=== PATIENT | female | born 1970 | race American Indian/Alaskan Native ===

== ENCOUNTER 2017-01-28 13:54 | Emergency (ER) | payer OTHER ==
[2017-01-28 17:58] LABS: Bacteria,Urine 2+ /HPF (Negative); Bilirubin,Urine NEG (Negative); Blood,Urine NEG (Negative); Ketones,Urine NEG (Negative); Leukocyte Esterase,Urine NEG (Negative); Nitrite,Urine POS (Negative); Protein,Urine <15 mg/dL mg/dL (Negative); Urobilinogen,Urine < 2.0 mg/dL (<2.0)
[2017-01-28] MEDS ORDERED: MACROBID PO ONE (18:10)
--- NOTE | 2017-01-28 18:18 | Emergency Department Report ---
Entered by GAURAV VALDEZ, acting as scribe for DEIDRE MARTINEZ NP. ED Female HPI - General Chief complaint: Urogenital-Female Stated complaint: UTI Time Seen by Provider: 01/28/17 17:59 Source: patient Mode of arrival: Ambulatory Limitations: No Limitations - History of Present Illness Initial comments: Pt is a 47 y.o. female with hx of frequent UTIs, who presents to [facility] for evaluation of two day hx of persistent urinary frequency, dysuria, and urgency with associated lower back pain and subjective fever. She describes her lower back pain as a constant, 3/10, aching that is aggravated with ADLs and alleviated with inactivity and Azo taken [employer]. Patient states that her current sx are similar to those experienced in the past with UTIs. She denies N/V or upper back pain. Pt notes that her most recent UTI was last year and states that Bactrim typically clears up her UTI sx. MD Complaint: dysuria, other (frequency, urgency, low back pain) Onset/Timin -: days(s) Location: suprapubic Radiation: other (low back ) Severity: mild, moderate Severity scale (0 -10): 3 Quality: aching Consistency: constant Improves with: other (inactivity) Worsens with: other (ADLs) Are you Now?: No Associated Symptoms: fever/chills (subjective fever), dysuria, other (positive for urgency and frequency). denies: vaginal discharge, vaginal bleeding, abdominal pain, nausea/vomiting, hematuria - Related Data Allergies Allergy/AdvReac Type Severity Reaction Status Date / Time Penicillins Allergy Nausea Verified 01/28/17 14:09 ED Review of Systems Comment: All other systems reviewed and negative Constitutional: fever (subjective) Respiratory: no symptoms reported Endocrine: no symptoms reported Gastrointestinal: denies: nausea, vomiting Genitourinary: as per HPI, urgency, dysuria, frequency. denies: hematuria Musculoskeletal: as per HPI, back pain (low) ED Past Medical Hx - Past Medical History Previous Medical History?: No - Surgical History Past Surgical History?: Yes Hx Cholecystectomy: Yes Hx Breast Surgery: Yes (Reduction) Additional Surgical History: Bowel obstruction, Exp. lap surgery - Social History Smoking Status: Never Smoker Substance Use Type: Alcohol, Non Opiate Pain, Other ED Physical Exam - General Limitations: No Limitations General appearance: alert, in no apparent distress - Head Head exam: Present: atraumatic, normocephalic, normal inspection - Eye Eye exam: Present: normal appearance. Absent: conjunctival injection - ENT ENT exam: Present: normal exam, mucous membranes moist, normal external ear exam - Neck Neck exam: Present: normal inspection, full ROM - Respiratory Respiratory exam: Present: normal lung sounds bilaterally. Absent: respiratory distress, chest wall tenderness - Cardiovascular Cardiovascular Exam: Present: regular rate, normal rhythm, normal heart sounds. Absent: systolic murmur, diastolic murmur, rubs, gallop - GI/Abdominal GI/Abdominal exam: Present: soft, normal bowel sounds, other (pt reports suprapubic discomfort). Absent: tenderness - Expanded GI/Abdominal Exam Expanded GI/Abdominal exam: Absent: Adams's sign, tenderness at Mcburney's Point - Extremities Exam Extremities exam: Present: normal inspection, full ROM - Back Exam Back exam: Present: normal inspection, full ROM, other (No CVA TTP, but pt reports pain across her lower back). Absent: tenderness, CVA tenderness (R), CVA tenderness (L), muscle spasm, paraspinal tenderness, vertebral tenderness, rash noted - Neurological Exam Neurological exam: Present: alert, oriented X3 - Psychiatric Psychiatric exam: Present: normal affect, normal mood - Skin Skin exam: Present: warm, dry, intact, normal color. Absent: rash ED Course Vital Signs 01/28/17 14:09 Temperature 97.8 F Pulse Rate 89 Respiratory 20 Rate Blood Pressure 148/93 O2 Sat by Pulse 100 Oximetry - Reevaluation(s) Reevaluation #1: 01/28/17 18:16 PT aware of lab results and plan of care. PT has no questions at this time. Strict return precautions reviewed with pt. - Pulse Oximetry Interpretation Digit-Finger Initial Pulse Oximetry Readin Actions Taken: none ED Medical Decision Making - Lab Data Labs 01/28/17 01/28/17 17:43 Unknown Urine Color [place] Urine Turbidity Clear Urine pH 5.0 Ur Specific [place] 1.016 Urine Protein <15 mg/dl Urine Glucose (UA) Neg Urine Ketones Neg Urine Blood Neg Urine Nitrite Pos Urine Bilirubin Neg Urine Urobilinogen < 2.0 Ur Leukocyte Esterase Neg Urine WBC (Auto) 36.0 H Urine RBC (Auto) 2.0 U Epithel Cells (Auto) < 1.0 Urine Bacteria (Auto) 2+ Amorphous Crystals 2+ Urine HCG, Qual Negative urine culture in progress - Differential Diagnosis uti Critical Care Time: No ED Disposition Clinical Impression: UTI (urinary tract infection) Qualifiers: Urinary tract infection type: acute cystitis Hematuria presence: without hematuria Qualified Code(s): N30.00 - Acute cystitis without hematuria Disposition: TO HOME OR SELFCARE Is pt being admited?: No Does the pt Need Aspirin: No Condition: Stable Instructions: Urinary Tract Infection in Women (ED), Dysuria (ED) Additional Instructions: Follow up with PCP in 3-5 days Repeat bp on follow up finish all of your antibiotics Prescriptions: Nitrofurantoin [place]/M-Cryst [Macrobid CAP] 100 mg PO Q12HR #14 capsule Referrals: [facility] [Outside] - 3-5 Days HUSSEIN STEPHEN MD [Staff Physician] - 3-5 Days Time of Disposition: 18:18 This documentation as recorded by the COURTNEY leon KELLY,accurately reflects the service I personally performed and the decisions made by MICHELLE randall TRACY M , [employer] O[employer].
[2017-01-28 18:34] VITALS: BP 125/87
== END 2017-01-28 18:54 | disposition home or self-care (01) ==
LOC: ED 13:54
DX: N30.00 Acute cystitis without hematuria (principal); Z88.0 Allergy status to penicillin
CPT/HCPCS: 81001; 81025; 87076; 87086; 87186; 99283